=== PATIENT | male | born 1990 | race Caucasian/White ===

== ENCOUNTER → 2024-04-30 14:20 | Outpatient (REF) | payer OTHER, SELFPAY | LOC: RCS 14:20 | PROVIDERS: ATTENDING PHYSICIAN Internal Medicine Cardiovascular Disease; FAMILY PHYSICIAN Family Medicine | DX: R42 Dizziness and giddiness (principal) | CPT/HCPCS: 93306 ==

== ENCOUNTER 2024-07-18 06:38 | Day surgery (SDC) | payer SELFPAY ==
[2024-07-18] VITALS (10 sets, daily range): BP systolic 109–134; BP diastolic 66–84; BMI 28.1
[2024-07-18] MEDS: TRANSDERM-SCOP 1 PATCH TRANSDERM (11:32)
== END 2024-07-18 17:00 | disposition home or self-care (01) ==
LOC: SDS 06:38
PROVIDERS: ATTENDING PHYSICIAN Specialist
DX: N46.01 Organic azoospermia (principal)
CPT/HCPCS: 55400